=== PATIENT | female | born 1980 | race Caucasian/White ===

== ENCOUNTER 2022-12-19 11:49 | Day surgery (SDC) | payer BC, MEDICAID ==
[2022-12-12 15:07] LABS: BASOPHILS % (AUTO) 0.3 % (0-1); EOSINOPHILS # (AUTO) 0.1 X10'3 (0-0.9); EOSINOPHILS % (AUTO) 1.1 % (0-6); LYMPHOCYTES # (AUTO) 2.8 X10'3 (1.1-4.8); LYMPHOCYTES % (AUTO) 36.6 % (21-51); MEAN CORPUSCULAR HEMOGLOBIN 30.4 PG (27.0-31.0); MEAN CORPUSCULAR HGB CONC 33.3 g/dL (33.0-36.5); MEAN CORPUSCULAR VOLUME 91.3 FL (78-98); MEAN PLATELET VOLUME 9.2 FL (7.4-10.4); MONOCYTES # (AUTO) 0.4 X10'3 (0-0.9); MONOCYTES % (AUTO) 5.8 % (2-12); NEUTROPHILS # (AUTO) 4.4 X10'3 (1.8-7.7); NEUTROPHILS % (AUTO) 56.2 % (42-75); PRE OP HEMATOCRIT 40.5 % (35.0-45.0); PRE OP HEMOGLOBIN 13.5 g/dL (12.0-16.0); PRE OP PLATELET COUNT 228 X10'3 (140-440); RED BLOOD COUNT 4.43 X10'6 (4.20-5.60); RED CELL DISTRIBUTION WIDTH 13.2 % (11.5-14.5)
[2022-12-12 15:08] LABS: CLARITY,URINE CLEAR (Clear); COLOR,URINE STRAW (Yellow); GLUCOSE, URINE NEGATIVE (Neg); KETONES,URINE NEGATIVE (Neg); LEUKOCYTE ESTERASE ,URINE NEGATIVE (Neg); NITRITES, URINE NEGATIVE (Neg); OCCULT BLOOD,URINE NEGATIVE (Neg); PH,URINE 6.5 (4.8-8.0); PROTEIN,URINE NEGATIVE (Neg); UROBILINOGEN,URINE 0.2 E.U/dL (0.2-1.0)
[2022-12-12 15:18] LABS: UA COLLECTION TYPE CLN CATCH MIDSTREAM
[2022-12-12 15:22] LABS: HCG SERUM QL NEGATIVE
[2022-12-12 15:38] LABS: ALBUMIN/GLOBULIN RATIO 1.5 (1.1-1.5); ALKALINE PHOSPHATASE 49 IU/L (46-116); BLOOD UREA NITROGEN 15 MG/DL (7-18); BUN/CREATININE RATIO 16.5 (6.6-38.0); CALCIUM 8.8 MG/DL (8.5-10.1); CREATININE 0.91 MG/DL (0.40-0.90); PRE OP ALT 18 U/L (30-65); PRE OP AST 19 U/L (10-37); PRE OP BILIRUB, TOTAL 0.3 MG/DL (0.0-1.0); PRE OP GLUCOSE 88 MG/DL (70-104); TOTAL CARBON DIOXIDE 28.4 MMOL/L (24-32); TOTAL PROTEIN 6.7 G/DL (6.4-8.2); eGFR 67 ML/MIN
[2022-12-12 16:12] LABS: CHLORIDE 105 MMOL/L (99-107); PRE OP ANION GAP 6 (8-16); PRE OP POTASSIUM 3.8 MMOL/L (3.4-5.1); PRE OP SODIUM 139 MMOL/L (135-145)
[2022-12-19] VITALS (9 sets, daily range): BP systolic 112–139; BP diastolic 63–89
[~2022-12-19] VITALS: Ht 165.1 cm; Wt 72.7 kg
[~2022-12-19 11:49] MED LIST: MULTIVITAMIN PO; PLEXUS PROBIO PO; [UNRECOGNIZED DRUG - OTHER] PO; [UNRECOGNIZED DRUG - OTHER] PO; [UNRECOGNIZED DRUG - OTHER] PO; famotidine 20mg tablet PO ONE; ringers solution, lacted 1,000 ML IV SCH
[2022-12-19] MEDS ORDERED: BUPIVAcaine/PF 5 mg/ml 10ml ONE (13:49)
[2022-12-19] MEDS ORDERED: sevoflurane 250ml liquid IH ONE (13:52)
[2022-12-19] MEDS ORDERED: rocuronium 10mg/ml inj IV ONE (13:52)
[2022-12-19] MEDS ORDERED: glycopyrrolate 0.2mg/ml inj ONE (13:52)
[2022-12-19] MEDS ORDERED: neostigmine methylsulfate 1 MG/ML 10ml vial ONE (13:52)
[2022-12-19] MEDS ORDERED: ringers solution, lacted 1,000 ML IV SCH (14:05)
[2022-12-19] MEDS ORDERED: meperidine/PF 25mg/ml syringe IV PRN ×3 (14:05)
[2022-12-19] MEDS ORDERED: morphine 4 MG/ML inj SYRINge IV PRN (14:05)
[2022-12-19] MEDS ORDERED: morphine 2 MG/ML inj. syringe IV PRN (14:05)
[2022-12-19] MEDS ORDERED: ondansetron/PF 4mg/2ml inj IV PRN (14:05)
[2022-12-19] MEDS ORDERED: proCHLORperazine 10 MG/2 ml inj IV PRN (14:05)
[2022-12-19] MEDS ORDERED: propofol inj 20 ML IV ONE (14:08)
[2022-12-19] MEDS ORDERED: midazolam 1 mg/ML 2ml injection ONE (14:08)
[2022-12-19] MEDS ORDERED: LIDOcaine 2% (20mg/ml) 5ml vial ONE (14:08)
[2022-12-19] MEDS ORDERED: fentaNYL/PF 50MCG/1 ML 2ML syringe ONE (14:08)
[2022-12-19] MEDS ORDERED: dexamethasone sod phosphate 4mg/ml inj. ONE (14:14)
[2022-12-19] MEDS ORDERED: ondansetron/PF 4mg/2ml inj ONE (14:37)
[2022-12-19] MEDS ORDERED: BUPIVAcaine 0.5% W/EPI /PF 10ml vial IJ ONE (14:39)
--- NOTE | 2022-12-19 15:10 | NUR ---
Received from OR via BED, accompanied by Anesthesiologist and report given by Anesthesiologist. PATIENT WAKING UP, C/O 7/10 PAIN SEE EMAR, V/S WNL, SCD ON, 20G TO RUE, ABDOMEN LAP SITE CLEAN W/ NO S/S OF COMPLICATIONS PERIPAD SCANT DRAINAGE,
[2022-12-19] MEDS ORDERED: ketorolac trometh. 30mg/ml inj. IV ONE (15:30)
--- NOTE | 2022-12-19 16:10 | NUR ---
PATIENT A&OX4, DENIES PAIN, V/S WNL, SCD OFF, 20G TO RUE D/C, ABDOMEN LAP SITE CLEAN W/ NO S/S OF COMPLICATIONS PERIPAD SCANT DRAINAGE, I HAVE REVIEWED D/C INSTRUCTIONS WITH PATIENT and they have verbalized understanding patient d/c home with all belongings and family gave transport home.
== END 2022-12-19 16:10 | disposition home or self-care (01) ==
LOC: PRE-OP 11:49
PROVIDERS: ATTEND Obstetrics & Gynecology
DX: Z30.2 Encounter for sterilization (principal); Z79.899 Other long term (current) drug therapy; Z98.890 Other specified postprocedural states
CPT/HCPCS: 36415; 58670; 80053; 81003; 82948; 84703; 85025; J1100; J2175; J2250; J2270; J2405; J2704; J2710; J3010; J3490; J7030; J7120; S0020; Z7506; Z7508; Z7512; A4618; A4628